=== PATIENT | male | born 1960 | race Caucasian/White ===

== ENCOUNTER 2024-04-11 11:00 | Inpatient (IN) | payer OTHER ==
[2024-04-11 11:50] VITALS: BMI 32.1
[2024-04-11] MEDS ORDERED: P-EPHED 60MG/TRIPROLIDI 2.5MG TABLET PO PRN (12:07)
[2024-04-11] MEDS ORDERED: POLYETHYLENE GLYCOL (HEALTHYLAX) 3350 17 GM PACKET PO PRN (12:07)
[2024-04-11] MEDS ORDERED: DICYCLOMINE HCL 10 MG CAPSULE PO PRN (12:07)
[2024-04-11] MEDS ORDERED: IBUPROFEN 400 MG TABLET (FP) PO PRN (12:07)
[2024-04-11] MEDS ORDERED: NALOXONE (NARCAN) HCL 4 MG/0.1 ML SPRAY NS PRN (12:07)
[2024-04-11] MEDS ORDERED: BISMUTH SUBSALICYLATE 524 MG/30 ML PO PRN (12:07)
[2024-04-11] MEDS ORDERED: MAGNESIUM HYDROX 2400MG/30ML ORAL SUSPENSION 30 ML CUP PO PRN (12:07)
[2024-04-11] MEDS ORDERED: guaiFENesin 600 MG TABLET.ER (FP) PO PRN (12:07)
[2024-04-11] MEDS ORDERED: MAG HYDROX/AL HYDROX/SIMETH 30 ML UNIT-DOSE CUP PO PRN (12:07)
[2024-04-11] MEDS ORDERED: BENZOCAINE/MENTHOL (CHLORASEPTIC ) LOZENGE MM PRN (12:07)
[2024-04-11] MEDS ORDERED: ONDANSETRON *ODT* 4 MG TABLET SL PRN (12:07)
[2024-04-11] MEDS ORDERED: LOPERAMIDE HCL 2 MG CAPSULE PO PRN (12:07)
[2024-04-11] MEDS ORDERED: BENZONATATE 200 MG CAPSULE PO PRN (12:07)
[2024-04-11] MEDS ORDERED: ACETAMINOPHEN 325 MG TABLET (FP) PO PRN (12:07)
[2024-04-11] MEDS: IBUPROFEN 600 MG TABLET (FP) PO PRN (14:55)
[2024-04-11] MEDS: methaDONE HCL 10 MG TABLET (FOR DETOX USE ONLY) PO ONE (17:25)
[2024-04-11] MEDS: methaDONE HCL 10 MG TABLET (FOR DETOX USE ONLY) PO PRN (22:23)
[2024-04-11] MEDS: MELATONIN 5 MG TABLETS PO SCH (22:23)
[2024-04-11] MEDS: THIAMINE 100 MG TABLET PO SCH (22:23)
[2024-04-11] MEDS: cloNIDine HCL 0.1 MG TABLET PO PRN (22:24)
[2024-04-12] MEDS: PRENATAL VITAMINS W/ FOLIC ACID TABLET (FP) PO SCH (09:43)
[2024-04-12] MEDS: amLODIPine BESYLATE 10 MG TABLET (FP) PO SCH (10:43)
[2024-04-12 14:33] LABS: POTASSIUM 4.1 mmol/L (3.5-5.1)
[2024-04-12 14:36] LABS: HEMATOCRIT 43.1 % (35.4-49); HEMOGLOBIN 14.5 GM/dL (11.7-16.9); MCH 29.9 pg (25.7-33.7); MCHC 33.8 g/dl (32.0-35.9); MEAN CELL VOLUME 88.7 fl (80-96); PLATELET COUNT 268 10^3/uL (134-434); RBC 4.86 M/mm3 (4.00-5.60); RDW 13.5 % (11.9-15.9); WHITE BLOOD COUNT 6.7 K/mm3 (4.0-10.0)
[2024-04-12 14:38] LABS: ALBUMIN 3.8 g/dl (3.4-5.0); CALCIUM 9.2 mg/dL (8.5-10.1)
[2024-04-12 14:39] LABS: BLOOD UREA NITROGEN 14.9 mg/dL (7-18)
[2024-04-12 14:41] LABS: CREATININE 0.9 mg/dL (0.55-1.3)
[2024-04-12 14:42] LABS: BILIRUBIN,TOTAL 0.6 mg/dL (0.2-1); TOT PROT 7.1 g/dl (6.4-8.2)
[2024-04-12] MEDS: GABAPENTIN 100 MG CAPSULE PO SCH (22:35)
[2024-04-12] MEDS: METHOCARBAMOL 500 MG TABLET PO PRN (22:35)
[2024-04-13] MEDS: TAMSULOSIN HCL 0.4 MG CAP PO SCH (09:27)
[2024-04-13] MEDS: methaDONE HCL 10 MG TABLET (FOR DETOX USE ONLY) PO ONE (09:27)
[2024-04-13] MEDS: SUVOREXANT 10 MG TABLET PO PRN (22:09)
[2024-04-14] MEDS: hydrOXYzine PAMOATE 25 MG CAPSULE (FP) PO PRN (17:43)
[2024-04-15] MEDS: methaDONE HCL 10 MG TABLET (FOR DETOX USE ONLY) PO ONE (10:18)
[2024-04-16 09:12] VITALS: BP 127/76; PULSE 78; RESP 18; TEMP 97.8
== END 2024-04-16 10:06 | disposition home or self-care (01) | DRG 773 ==
LOC: YASAS 11:00 → Y6N 13:46
PROVIDERS: ADMIT Allergy & Immunology; ATTEND Allergy & Immunology
PROC: HZ2ZZZZ Detoxification Services for Substance Abuse Treatment (ICD-10-PCS; principal; 2024-04-11)
DX: F11.23 Opioid dependence with withdrawal (principal); F19.282 Other psychoactive substance dependence with psychoactive substance-induced sleep disorder; I10 Essential (primary) hypertension; M17.0 Bilateral primary osteoarthritis of knee; N40.0 Benign prostatic hyperplasia without lower urinary tract symptoms
CPT/HCPCS: 36415; 80053; 80305; 85027; 86780; 93005; 93010